=== PATIENT | male | born 1995 | race Caucasian/White ===

== ENCOUNTER 2025-07-23 10:31 | Emergency (ER) | payer OTHER, BC, SELFPAY ==
[2025-07-23 10:35] VITALS: BP 150/82; PULSE 113; RESP 18; TEMP 37.7; O2SAT 100; BMI 22.2
--- NOTE | 2025-07-23 10:46 | ED.GENADULT ---
HPI - General Adult General Chief complaint: Extremity Pain/Injury, Upper Stated complaint: R elbow injury Time Seen by Provider: 07/23/25 10:46 History of Present Illness HPI narrative: Patient presents to the emergency department complaining of an elbow injury . Patient was at work yesterday and climbing down a ladder when he missed a step. Patient fell back and hit his elbow on a plastic bin on the way down. Feels like his hand in now more sensitive to cold and continued pain, 30-year-old man presenting to emergency department following an injury to his right elbow. While at work yesterday missed a step when coming down a ladder. Fell back striking his right elbow on plastic bin. He has been feeling pain in the medial elbow and a cold and pulling sensation down the right medial forearm when flexing his right elbow. Experiences tingling discomfort in to the 3rd through 5th fingers on the right hand. No actual weakness. No shoulder injury. No injury to neck or back or head. Related Data Home Medications ?Medication ?Instructions ?Recorded ?Confirmed No Known Home Medications 07/23/25 07/23/25 Allergies Allergy/AdvReac Type Severity Reaction Status Date / Time No Known Drug Allergies Allergy Verified 07/23/25 10:41 Review of Systems Status of ROS: Reports: 6 or more systems reviewed and unremarkable except as noted in History and below Exam Narrative: Exam Narrative: Pleasant. NAD. Favoring the right arm a little bit. Is well-perfused peripherally. Intact radial pulse. 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 Is tender to palpation primarily in the ulnar groove. A little fullness over the medial elbow. No olecranon tenderness. Is not clearly tender over the medial or lateral malleolus Const: Vital Signs, click to edit/add: Vital Signs - 24 hr 07/23/25 10:35 Temperature 99.9 F H Pulse Rate [Right Pulse Oximeter] 113 H Respiratory Rate 18 Blood Pressure [Ri ght Upper Arm] 150/82 H Pulse Oximetry 100 Oxygen Delivery Me thod Room Air Documenting provider has reviewed patient's vital signs: yes Course Vital Signs Vital signs: Initial Vital Signs Temperature 99.9 F H 07/23/25 10:35 Temperature Source Temporal Artery Scan 07/23/25 10:35 Pulse Rate 113 H 07/23/25 10:35 Pulse Rhythm Regular 07/23/25 10:35 Pulse Strength 3+ Normal 07/23/25 10:35 Respiratory Rate 18 07/23/25 10:35 Blood Pressure 150/82 H 07/23/25 10:35 Blood Pressure Mean 104 07/23/25 10:35 Blood Pressure Position Sitting 07/23/25 10:35 Pulse Oximetry 100 07/23/25 10:35 Oxygen Delivery Method Room Air 07/23/25 10:35 Vital Signs Temperature 99.9 F H 07/23/25 10:35 Pulse Rate 113 H 07/23/25 10:35 Respiratory Rate 18 07/23/25 10:35 Blood Pressure 150/82 H 07/23/25 10:35 Pulse Oximetry 100 07/23/25 10:35 Oxygen Delivery Method Room Air 07/23/25 10:35 Temperature 99.9 F H 07/23/25 10:35 Pulse Rate 113 H 07/23/25 10:35 Respiratory Rate 18 07/23/25 10:35 Blood Pressure 150/82 H 07/23/25 10:35 Pulse Oximetry 100 07/23/25 10:35 Oxygen Delivery Method Room Air 07/23/25 10:35 Medical Decision Making MDM Narrative Medical decision making narrative: I think symptoms and distribution are consistent with neurapraxia the ulnar nerve. Certainly there might be fracture in here but I think that is less likely. Neck is reasonable though to do baseline x-ray given trauma involved. Does not appear to medial epicondylitis specifically. Good pulses and warmth I think not likely to have a vascular injury here. Elbow x-ray independently reviewed by me is without effusion. I do not see acute bony abnormality. Radiology over-read below Indication: Distal arm/hand coldness, pain after elbow injury Technique: Right elbow 2 views Comparison: None Findings: Bones: Alignment is normal. No fractures or bone lesions. Joint spaces: Joint spaces are well maintained. No degenerative changes. No sign of joint effusion. Soft tissues: Mild posterior olecranon soft tissue swelling. Impression: No sign of acute fracture. Still believe that contusion of the elbow and trauma to the ulnar nerve is the cause of the symptoms here today. Did discuss potential arm sling though I think this might place further irritating pressure and flexion of the elbow is actually the most irritating movement. He is concerned about longer-term injury and looking for resolution of this as soon as possible. Discussed options. See patient discharge plan for further discussion As discussed, I would consider icing your elbow 2-3 times daily over the next few days. Avoid further trauma to your elbow especially in the short term; over the next couple of weeks. Take a copy of your images on this disc and report along with you if needed for follow-up. Can take up to 600 mg of ibuprofen or up to 850 mg of acetaminophen per dose; they can be combined. Alternative to the ibuprofen -- could take 375 mg of naproxen 2 times daily. See work note. Schedule follow-up in primary care this next week or might be seen by [facility] if needed. Discharge Plan Discharge Clinical Impression: Neurapraxia of right ulnar nerve Patient Disposition: Home, Self-Care Condition: Stable Additional Instructions: As discussed, I would consider icing your elbow 2-3 times daily over the next few days. Avoid further trauma to your elbow especially in the short term; over the next couple of weeks. Take a copy of your images on this disc and report along with you if needed for follow-up. Can take up to 600 mg of ibuprofen or up to 850 mg of acetaminophen per dose; they can be combined. Alternative to the ibuprofen -- could take 375 mg of naproxen 2 times daily. See work note. Schedule follow-up in primary care this next week or might be seen by [facility] if needed. Prescriptions: No Action No Known Home Medications Follow Up/Referrals: Provider,Not a Local [Primary Care Provider, Family Practice] Stand Alone Forms: Page2Images Info Instructions
--- NOTE | 2025-07-23 11:00 | CRLHL7_ITS ---
For Patients: As a result of the Cures Act, medical imaging exams and procedure reports are released immediately into your electronic medical record. You may view this report before your referring provider. If you have questions, please contact your health care provider. Indication: Distal arm/hand coldness, pain after elbow injury Technique: Right elbow 2 views Comparison: None Findings: Bones: Alignment is normal. No fractures or bone lesions. Joint spaces: Joint spaces are well maintained. No degenerative changes. No sign of joint effusion. Soft tissues: Mild posterior olecranon soft tissue swelling. Impression: No sign of acute fracture. Dictated by Loco Foote MD @ 07/23/2025 11:30:01 AM (Electronically Signed)
== END 2025-07-23 12:44 | disposition home or self-care (01) ==
PROVIDERS: Emergency Provider Family Medicine
DX: G56.21 Lesion of ulnar nerve, right upper limb (principal); W11.XXXA Fall on and from ladder, initial encounter; Y99.0 Civilian activity done for income or pay
CPT/HCPCS: 73070; 99283; 99284